=== PATIENT | female | born 2005 | race Caucasian/White ===

== ENCOUNTER 2023-05-05 03:09 | Emergency (ER) | payer BC ==
[2023-05-05] MEDS ORDERED: Acetaminophen 325 MG TAB ONE (03:45)
[2023-05-05] MEDS ORDERED: Ondansetron ODT 4 MG TAB ONE (03:46)
[2023-05-05] MEDS ORDERED: Ketorolac Tromethamine 30 MG/ML VIAL ONE (03:49)
[2023-05-05 04:40] LABS: SARS-CoV-2 NAA Rapid Test Not Detected (NotDetected)
== END 2023-05-05 04:49 | disposition home or self-care (01) ==
LOC: ERS 03:09
DX: J10.1 Influenza due to other identified influenza virus with other respiratory manifestations (principal)
CPT/HCPCS: 36415; 71045; 85379; 96372; J1885; Q0162